=== PATIENT | male | born 1975 | race Caucasian/White ===

== ENCOUNTER 2021-11-17 23:15 | Emergency (ER) | payer SELFPAY ==
[~2021-11-17 23:15] MED LIST: FELDENE10 MG PO; FLEXERIL 10 MG10 MG PO; MEDROL4 MG PO; Voltaren Gel 1 % TOP
[2021-11-18 00:49] LABS: HEMOGLOBIN 15.5 gm/dl (14.0-17.5); RED BLOOD COUNT 4.9 M/UL (4.20-5.50); WHITE BLOOD COUNT 11.8 K/UL (4.5-11.0)
[2021-11-18 01:12] LABS: BUN/CREATININE RATIO 15 (0-10)
[2021-11-18] MEDS ORDERED: OMNICEF 300 MG300 MG PO (04:02)
[2021-11-18] MEDS ORDERED: BACTRIM DS TAB1 EACH PO (04:02)
== END 2021-11-18 04:12 | disposition home or self-care (01) ==
LOC: ER1 23:15
PROVIDERS: Physician Assistant
DX: U07.1 COVID-19 (principal); L03.113 Cellulitis of right upper limb; F17.200 Nicotine dependence, unspecified, uncomplicated
CPT/HCPCS: 73201; 80053; 83605; 85025; 85652; 86140; 99284; Q9967; U0002

== ENCOUNTER 2022-01-26 15:11 | Emergency (ER) | payer OTHER ==
[~2022-01-26 15:11] MED LIST changes: +BACTRIM DS TAB1 EACH PO; +OMNICEF 300 MG300 MG PO
[2022-01-26] MEDS ORDERED: HYDROCODON-ACE1 EAC2 PO (17:55)
== END 2022-01-26 18:40 | disposition home or self-care (01) ==
LOC: ER1 15:11
DX: S80.02XA Contusion of left knee, initial encounter (principal); F17.210 Nicotine dependence, cigarettes, uncomplicated; W22.8XXA Striking against or struck by other objects, initial encounter; Y99.0 Civilian activity done for income or pay
CPT/HCPCS: 73552; 73562; 99283